=== PATIENT | female | born 1970 | race Two or more races ===

== ENCOUNTER 2022-11-16 11:00 | Outpatient (CLI) | payer MEDICAID ==
[~2022-11-16] VITALS: Ht 157.5 cm; Wt 94.3 kg
[2022-11-16 12:14] LABS: Basophils # (auto) 0 10 ^3/uL (0-0.2); Basophils % (auto) 0.6 % (0.0-2.0); Eosinophils # (auto) 0.2 10 ^3/uL (0-0.8); Eosinophils % (auto) 2.5 % (0.0-7.0); Hemoglobin 9.9 g/dL (12.2-16.2); Lymphocytes # (auto) 2.8 10 ^3/uL (0.4-5.4); Lymphocytes % (auto) 38.7 % (10.0-50.0); Mean Corpuscular Hemoglobin 22.4 pg (28.0-32.0); Monocytes # (auto) 0.5 10 ^3/uL (0-1.3); Monocytes % (auto) 7.1 % (0.0-12.0); Neutrophils # (auto) 3.7 10 ^3/uL (1.6-8.6); Neutrophils % (auto) 51.1 % (37.0-80.0); Nucleated Red Blood Cells % 0.1 %; Red Blood Cells 4.44 10^6/uL (4.0-5.20); Red Cell Distribution Width 17.2 % (11.8-14.3); White Blood Cell 7.3 10^3/uL (4.4-10.8)
[2022-11-16 12:32] LABS: Partial Thromboplastin Time 24.8 sec (24.6-33.4)
[2022-11-16 13:33] LABS: Albumin 3.4 g/dL (3.4-5.0); Calcium 8.7 mg/dL (8.5-10.1); Potassium 4.4 mmol/L (3.5-5.1)
[2022-11-16 13:37] LABS: BUN/Creatinine Ratio 17.1 (10.0-20.0); Bilirubin, Total 0.4 mg/dL (0.2-1.0); Total Protein 7.5 g/dL (6.4-8.2)
[2022-11-16] MEDS ORDERED: METF-372 PO (16:33)
[2022-11-16] MEDS ORDERED: RIVA10TA PO (16:33)
[2022-11-16] MEDS ORDERED: FERR-7 PO (16:33)
== END 2022-11-16 12:00 | disposition home or self-care (01) ==
LOC: LAB 11:00 → EDSTATUS 11-18 11:15
PROVIDERS: ATTEND Internal Medicine Gastroenterology
DX: Z01.812 Encounter for preprocedural laboratory examination (principal); U07.1 COVID-19; K92.2 Gastrointestinal hemorrhage, unspecified; K59.00 Constipation, unspecified
CPT/HCPCS: 36415; 80053; 84702; 85025; 85610; 85730; U0003